=== PATIENT | male | born 1965 | race Caucasian/White ===

== ENCOUNTER 2020-04-01 00:30 | Emergency (ER) | payer OTHER ==
[~2020-04-01 00:30] MED LIST: ALLOPURINOL300 MG PO; COLCRYS0.6 MG PO; ONDANSETRON ODT4 MG SL
[2020-04-01 01:00] LABS: BASOPHIL 0.5 % (0-2); EOSINOPHIL 0.1 % (0-5); HCT 43.6 % (42.0-52.0); HGB 14.9 g/dl (13.2-18.0); LYMPHOCYTE 9.4 % (15-48); MCH 32.6 pg (25.0-31.0); MCHC 34.2 g/dL (32.0-36.0); MCV 95.4 fL (78.0-100.0); MONOCYTE 8.5 % (0-12); MPV 10.2 fL (6.0-9.5); NEUTROPHIL 81.1 % (41-80); NRBC 0; PLT 319 K/uL (150-400); RBC 4.57 M/uL (4.70-6.00); RDW 12.7 % (11.5-14.0); WBC 13.6 K/uL (4.0-10.5)
[2020-04-01 01:12] LABS: INR 1.22 (0.9-1.2); PROTHROMBIN TIME 14.6 SECONDS (11.4-13.6); PTT 25.5 SECONDS (22.2-34.7)
[2020-04-01 01:14] LABS: D-DIMER < 0.27 ug/mLFEU (0.00-0.41)
[2020-04-01 01:30] LABS: ALBUMIN 4.1 g/dL (3.4-5.0); BILIRUBIN - TOTAL 0.5 mg/dL (0.2-1.0); BUN/CREAT RATIO (CALC) 16.3 RATIO; CREATININE 0.98 mg/dL (0.67-1.17); GLOBULIN (CALCULATION) 4.2 g/dL; POTASSIUM 4.5 mmol/L (3.5-5.1); TOTAL PROTEIN 8.3 g/dL (6.4-8.2)
[2020-04-01 03:14] LABS: CORONAVIRUS 2019 SARS-COV-2 NEGATIVE (NEGATIVE); INFLUENZA A NAA NEGATIVE (NEGATIVE)
== END 2020-04-01 02:55 | disposition home or self-care (01) ==
LOC: FER 00:30
PROVIDERS: Emergency Medicine
DX: I31.9 Disease of pericardium, unspecified (principal); I10 Essential (primary) hypertension; R00.0 Tachycardia, unspecified; Z85.528 Personal history of other malignant neoplasm of kidney; Z88.0 Allergy status to penicillin; Z20.822 Contact with and (suspected) exposure to COVID-19
CPT/HCPCS: 36415; 71045; 80053; 84484; 85025; 85379; 85610; 85730; 93005; J1885; U0002